=== PATIENT | male | born 1995 | race Caucasian/White ===

== ENCOUNTER 2020-09-30 11:13 | Emergency (ER) | payer OTHER ==
[2020-09-30] MEDS ORDERED: hydrOXYzine HCL 100 MG/2 ML SDV IM ONE (11:55)
--- NOTE | 2020-09-30 12:00 | EDM.PDOC ---
ED HPI GENERAL MEDICAL PROBLEM - General Chief Complaint: Skin Complaint Stated Complaint: HIVES Time Seen by Provider: 09/30/20 11:35 Source of Information: Reports: Patient, Family (mother) History Limitations: Reports: No Limitations - History of Present Illness INITIAL COMMENTS - FREE TEXT/NARRATIVE: Mercedez is a 25 year old mal whom presents to [facility] with mother (whom assists) with history for evaluation of bilateral arm and leg rash. Rash started a few days ago when Mercedez walked into the springer to pull in the air compressor to blow up an air mattress this weekend. Mother reports they have tried Benadryl and topical treatment without improvement of symptoms this weekend. Mother would like Mercedez to get a shot for itching. - Related Data Allergies Allergy/AdvReac Type Severity Reaction Status Date / Time No Known Allergies Allergy Verified 09/30/20 11:30 Home Meds: Home Meds hydrOXYzine HCL [Atarax] 25 mg PO Q6H PRN 5 Days #20 tab 09/30/20 [Rx] Past Medical History - Past Health History Medical/Surgical History: Denies Medical/Surgical History ED ROS GENERAL - Review of Systems Review Of Systems: Comprehensive ROS is negative, except as noted in HPI. ED EXAM, SKIN/RASH Exam: See Below Exam Limited By: No Limitations General Appearance: Alert, WD/WN, Mild Distress (itching ) Eye Exam: Bilateral Eye: EOMI, Normal Inspection Ears: Hearing Grossly Normal Nose: Normal Inspection Throat/Mouth: Normal Voice, No Airway Compromise Neck: Normal Inspection, Supple Respiratory/Chest: No Respiratory Distress Cardiovascular: Normal Peripheral Pulses Extremities: Normal Range of Motion, Other (rash noted (extenor surface or bilateral arms and legs) ) Neurological: Alert, Oriented Psychiatric: Normal Affect, Normal Mood Skin: Rash (multiple small raise erythematous lesions (insect bites vs contact dermatitis) which is not linear or wheeping. ) Characteristics: No: Petechial Course - Vital Signs Last Recorded V/S: Last Vital Signs Temp 36.6 C 09/30/20 11:35 Pulse 70 09/30/20 11:35 Resp 18 09/30/20 11:35 BP 119/74 09/30/20 11:35 Pulse Ox 98 09/30/20 11:35 - Orders/Labs/Meds Meds: Medications Discontinued Medications Generic Name Dose Route Start Last Admin Trade Name Freq PRN Reason Stop Dose Admin Hydroxyzine HCl 100 mg 09/30/20 11:55 Hydroxyzine Hcl 100 Mg/2 Ml Sdv IM 09/30/20 11:56 ONETIME ONE Departure - Departure Time of Disposition: 12:30 Disposition: DC/Tfer to [facility] Clinical Impression: Rash and nonspecific skin eruption - Discharge Information Prescriptions: hydrOXYzine HCL [Atarax] 25 mg PO Q6H PRN 5 Days #20 tab PRN Reason: Itching Instructions: Rash, Adult, Stinging Nettle Rash, Contact Dermatitis, Insect Bite, Adult Referrals: PCP,None [Primary Care Provider] - Forms: ED Department Discharge Additional Instructions: 1. Cool area to help with itching and rash (warmth will increased itching and rash concerns). 2. Hydroxyzine 25-50mg every 6-8 hours as needed for itching and rash (may cause some fatigue, do not take with Benadryl or alcohol). 3. Zyrtec 10mg every am and pm for itching and rash (longer acting anti- histamine) 4. Ibuprofen 600mg every 6-8 hrs for pain, inflammation and swelling. If needed. 5. May use topical Hydrocortisone 1% every am and pm but no additional topical Benadryl with oral hydroxyzine or Benadryl. 6. Follow information given and see hair colorist in 5-7 days if not improving sooner if signs fo secondary infection noted. Sepsis Event Note (ED) - Evaluation Sepsis Screening Result: No Definite Risk - Focused Exam Vital Signs: Vital Signs Temp Pulse Resp BP Pulse Ox 09/30/20 11:35 36.6 C 70 18 119/74 98 09/30/20 11:34 36.6 C 70 18 119/74 98
== END 2020-09-30 12:53 | disposition home or self-care (01) ==
LOC: JP.ED 11:13
DX: R21 Rash and other nonspecific skin eruption (principal)
CPT/HCPCS: 96372; 99282; J3410